=== PATIENT | female | born 1955 | race African-American/Black ===

== ENCOUNTER 2024-04-18 14:35 | Inpatient (IN) | payer OTHER, MEDICAID, MEDICARE ==
[~2024-04-18] VITALS: Ht 162.6 cm; Wt 77.1 kg
[2024-04-18 14:42] VITALS: O2SAT 100
[2024-04-18] MEDS: SODIUM CHLORIDE 0.9% 500 ML IV ONE (15:30)
[2024-04-18] MEDS ORDERED: PIPERACILLIN/TAZO 3.375G/50ML 50 ML IV ONE (15:30)
[2024-04-18] MEDS ORDERED: CEFEPIME 2GM IN DEXT 5% 100ML IV ONE (16:00)
[2024-04-18 16:10] LABS: BASOPHILS % 0.3 % (0.0-2.0); DIFFERENTIAL COMMENT 0; EOSINOPHILS % 0.1 % (0.0-5.0); HEMATOCRIT. 21.2 % (36.0-48.0); LYMPHOCYTES % 8.4 % (20.0-50.0); MEAN CORPUSCULAR HEMOGLOBIN 27.3 pg (28.0-32.0); MEAN CORPUSCULAR HGB CONC 30.9 g/dL (31.0-37.0); MEAN CORPUSCULAR VOLUME 88.1 fL (81.0-99.0); MEAN PLATELET VOLUME 6.5 fl (7.4-10.4); MONOCYTES % 4.2 % (2.0-8.0); PLATELET 435 x1000/uL (130-400); RED CELL DISTRIBUTION WIDTH 20.1 % (11.6-14.6); WHITE BLOOD COUNT 9.8 x1000/uL (4.5-11.0)
[2024-04-18 16:13] LABS: CHLORIDE 102 mEq/L (98-107); HEMOGLOBIN. 6.5 g/dL (12.0-16.0); POTASSIUM 4.5 mEq/L (3.5-5.1); SODIUM 135 mEq/L (136-145)
[2024-04-18 16:14] LABS: CARBON DIOXIDE 16 mEq/L (21-32)
[2024-04-18 16:15] LABS: CALCIUM 8.7 mg/dL (8.7-10.4)
[2024-04-18] MEDS: VANCOMYCIN 1G PREMIX 200 ML IV ONE (16:17)
[2024-04-18 16:18] LABS: PROTHROMBIN TIME 11.5 sec (9.6-11.0)
[2024-04-18 16:19] LABS: CREATININE 2.3 mg/dL (0.6-1.0); GLUCOSE 165 mg/dL (70-105)
[2024-04-18 16:20] LABS: UREA NITROGEN BLOOD 41 mg/dL (9-23)
[2024-04-18 16:29] LABS: TROPONIN I HIGH SENSITIVITY 140 ng/L (3.0-34)
[2024-04-18 16:30] LABS: LACTIC ACID 8.7 mmol/L (0.4-2.0)
[2024-04-18 17:31] LABS: BG BASE EXCESS -13.8 mmol/L (-2.0-2.0); BG CARBOXYHEMOGLOBIN 0.2 % (0.5-1.5); BG FRACTION INSPIRED OXYGEN 100; BG HCO3 ACT 12.5 mmol/L (22.0-26.0); BG METHEMOGLOBIN 0.1 % (0.0-1.5); BG OXYHEMOGLOBIN 95.7 % (94.0-97.0); BG PCO2 30.5 mmHg (35.0-45.0); BG PO2 93.3 mmHg (75.0-100.0); BG SAMPLE SITE RIGHT RADIAL; BG TOTAL HEMOGLOBIN 8.8 g/dL (12.0-18.0); BG VENT MODE MASK - NRB
[2024-04-18] MEDS: CEFEPIME 2GM/100ML 100 ML IV NR (18:26)
[2024-04-18] MEDS: SODIUM CHLORIDE 0.9% 1,000 ML IV ONE ×2 (18:26→23:06)
[2024-04-18 18:47] LABS: TROPONIN I HIGH SENSITIVITY 444 ng/L (3.0-34)
[2024-04-18] MEDS ORDERED: HEPARIN 25,000 UNITS PREMIX 250 ML IV SCH (20:15)
[2024-04-18] MEDS: HEPARIN 5000 UNITS/ML VIAL IV ONE (20:15)
[2024-04-18] MEDS ORDERED: HEPARIN BOLUS PRN aPTT 30-44 IV (22:45)
[2024-04-18] MEDS ORDERED: HEPARIN BOLUS PRN aPTT <30 IV (22:45)
[2024-04-18] MEDS: HEPARIN 60 UNITS/KG BOLUS IV NR (23:15)
[2024-04-18] MEDS: HEPARIN 25,000 UNITS PREMIX 250 ML IV SCH (23:21)
[2024-04-19] VITALS (14 sets, daily range): BP systolic 81–98; BP diastolic 68–80; PULSE 109–117; RESP 20–36; TEMP 97–98.4
[2024-04-19] MEDS: ACETAMINOPHEN 325MG TABLET PO PRN (01:30)
[2024-04-19] MEDS ORDERED: HYDROCODONE/ACETAMINOPHEN 5/325MG TABLET PO PRN (02:30)
[2024-04-19 08:36] LABS: HEMATOCRIT. 24.7 % (36.0-48.0); HEMOGLOBIN. 7.7 g/dL (12.0-16.0); MEAN CORPUSCULAR HEMOGLOBIN 27.3 pg (28.0-32.0); MEAN CORPUSCULAR HGB CONC 31.1 g/dL (31.0-37.0); MEAN CORPUSCULAR VOLUME 87.8 fL (81.0-99.0); MEAN PLATELET VOLUME 7.1 fl (7.4-10.4); PLATELET 428 x1000/uL (130-400); RED BLOOD CELL COUNT 2.81 mill/uL (4.2-5.4); RED CELL DISTRIBUTION WIDTH 19.2 % (11.6-14.6); WHITE BLOOD COUNT 11.1 x1000/uL (4.5-11.0)
[2024-04-19 08:37] LABS: DIFFERENTIAL COMMENT 1
[2024-04-19] MEDS ORDERED: CEFEPIME 1GM/50ML 50 ML IV SCH (14:00)
[2024-04-19 15:34] LABS: PLATELET ESTIMATE SLIGHTLY INCREASED
[2024-04-19] MEDS ORDERED: IPRATROPIUM/ALBUTEROL 0.5-3(2.5)MG/3ML NEB HHN PRN (17:30)
[2024-04-19] MEDS: CEFEPIME 2GM/100ML 100 ML IV SCH (18:43)
[2024-04-19] MEDS: SODIUM CHLORIDE 0.9% 1,000 ML IV SCH (18:46)
[2024-04-19] MEDS: ENOXAPARIN 80MG/0.8ML SYR SUBCUT NR (18:57)
[2024-04-19] MEDS: LACTOBACILLUS GG CAPSULE PO SCH (19:30)
[2024-04-19 19:47] LABS: IRON 35 ug/dL (50-170)
[2024-04-19 19:50] LABS: TOTAL IRON BINDING CAPACITY 157 ug/dl (250-425)
[2024-04-19] MEDS: SODIUM BICARBONATE 8.4% 50MEQ/50ML SYR IV NR (19:57)
[2024-04-19] MEDS: METRONIDAZOLE 500MG TABLET PO SCH (21:23)
[2024-04-20] VITALS (12 sets, daily range): BP systolic 95–112; BP diastolic 69–84; PULSE 114–127; RESP 20–36; TEMP 97.3–98.3
[2024-04-20 05:46] LABS: HEMATOCRIT. 23.6 % (36.0-48.0); HEMOGLOBIN. 7.7 g/dL (12.0-16.0); MEAN CORPUSCULAR HEMOGLOBIN 28.3 pg (28.0-32.0); MEAN CORPUSCULAR HGB CONC 32.7 g/dL (31.0-37.0); MEAN CORPUSCULAR VOLUME 86.5 fL (81.0-99.0); MEAN PLATELET VOLUME 7.1 fl (7.4-10.4); PLATELET 404 x1000/uL (130-400); RED BLOOD CELL COUNT 2.73 mill/uL (4.2-5.4); RED CELL DISTRIBUTION WIDTH 20.4 % (11.6-14.6); WHITE BLOOD COUNT 15.3 x1000/uL (4.5-11.0)
[2024-04-20 05:47] LABS: CALCIUM 8.5 mg/dL (8.7-10.4)
[2024-04-20 05:52] LABS: CREATININE 2.5 mg/dL (0.6-1.0)
[2024-04-20 06:49] LABS: DIFFERENTIAL COMMENT 1
[2024-04-20] MEDS ORDERED: SODIUM BICARBONATE 75 MEQ in SODIUM CHLORIDE 0.45% 1,000 ML IV SCH (13:00)
[2024-04-20] MEDS: SODIUM BICARBONATE 75 MEQ in SODIUM CHLORIDE 0.45% 925 ML IV SCH (16:15)
[2024-04-20 16:37] LABS: ANISOCYTOSIS 2+; PLATELET ESTIMATE INCREASED
[2024-04-20] MEDS: AZTREONAM 2 GM in DEXT 5% WATER 100 ML IV SCH (18:08)
[2024-04-20] MEDS: DIGOXIN 500MCG/2ML AMP IV NR (20:29)
[2024-04-20] MEDS: APIXABAN 5 MG TABLET PO SCH (20:29)
[2024-04-20] MEDS: PREDNISONE 20MG TABLET PO NR (20:30)
[2024-04-21] VITALS (22 sets, daily range): BP systolic 102–137; BP diastolic 70–98; PULSE 105–121; RESP 13–42; TEMP 97.2–98.2
[2024-04-21] MEDS: PREDNISONE 20MG TABLET PO NR ×2 (01:43→08:16)
[2024-04-21 05:13] LABS: DIFFERENTIAL COMMENT 1; HEMATOCRIT. 23.9 % (36.0-48.0); HEMOGLOBIN. 7.8 g/dL (12.0-16.0); MEAN CORPUSCULAR HEMOGLOBIN 28.3 pg (28.0-32.0); MEAN CORPUSCULAR HGB CONC 32.8 g/dL (31.0-37.0); MEAN CORPUSCULAR VOLUME 86.5 fL (81.0-99.0); MEAN PLATELET VOLUME 7.2 fl (7.4-10.4); PLATELET 466 x1000/uL (130-400); RED BLOOD CELL COUNT 2.77 mill/uL (4.2-5.4); RED CELL DISTRIBUTION WIDTH 20.3 % (11.6-14.6); WHITE BLOOD COUNT 18.3 x1000/uL (4.5-11.0)
[2024-04-21 05:16] LABS: CHLORIDE 101 mEq/L (98-107); POTASSIUM 4.8 mEq/L (3.5-5.1)
[2024-04-21 05:17] LABS: CARBON DIOXIDE 19 mEq/L (21-32); SODIUM 134 mEq/L (136-145)
[2024-04-21 05:18] LABS: CALCIUM 8.2 mg/dL (8.7-10.4)
[2024-04-21 05:22] LABS: CREATININE 2.5 mg/dL (0.6-1.0); GLUCOSE 144 mg/dL (70-105)
[2024-04-21 05:23] LABS: UREA NITROGEN BLOOD 46 mg/dL (9-23)
[2024-04-21 05:24] LABS: ALANINE AMINOTRANSFERASE 79 IU/L (10-49); ALBUMIN 3.4 g/dL (3.2-4.8); ASPARTATE AMINOTRANSFERASE 191 IU/L (<34); CREATINE KINASE 243 IU/L (34-145)
[2024-04-21 05:25] LABS: BILIRUBIN DIRECT 0.3 mg/dL (<=3.0); BILIRUBIN TOTAL 0.5 mg/dL (0.1-1.0); PROTEIN TOTAL 6.4 g/dL (6.0-8.3)
[2024-04-21] MEDS ORDERED: LIDOCAINE HCL 1% 10 MG/ML 10ML VIAL ONE (08:18)
[2024-04-21] MEDS ORDERED: IODIXANOL 320MG/ML 100 ML BOTTLE IV ONE (08:18)
[2024-04-21] MEDS: DIPHENHYDRAMINE 50MG/ML VIAL IV NR (08:19)
[2024-04-21] MEDS ORDERED: SODIUM CHLORIDE 0.9% 1,000 ML IV SCH (16:00)
[2024-04-21 19:47] LABS: PLATELET ESTIMATE NORMAL
[2024-04-22] VITALS (12 sets, daily range): BP systolic 86–106; BP diastolic 65–82; PULSE 109–121; RESP 12–25; TEMP 97.1–97.6
[2024-04-22 09:14] LABS: CARBON DIOXIDE 22 mEq/L (21-32); CHLORIDE 98 mEq/L (98-107); POTASSIUM 4.5 mEq/L (3.5-5.1); SODIUM 133 mEq/L (136-145)
[2024-04-22 09:15] LABS: CALCIUM 8.6 mg/dL (8.7-10.4)
[2024-04-22 09:17] LABS: HEMATOCRIT. 25.3 % (36.0-48.0); MEAN CORPUSCULAR HEMOGLOBIN 27.1 pg (28.0-32.0); MEAN CORPUSCULAR HGB CONC 31.4 g/dL (31.0-37.0); MEAN CORPUSCULAR VOLUME 86.1 fL (81.0-99.0); MEAN PLATELET VOLUME 7.2 fl (7.4-10.4); PLATELET 497 x1000/uL (130-400); RED BLOOD CELL COUNT 2.93 mill/uL (4.2-5.4); RED CELL DISTRIBUTION WIDTH 20.5 % (11.6-14.6); UREA NITROGEN BLOOD 56 mg/dL (9-23); WHITE BLOOD COUNT 19.4 x1000/uL (4.5-11.0)
[2024-04-22 09:19] LABS: CREATININE 2.3 mg/dL (0.6-1.0); GLUCOSE 109 mg/dL (70-105)
[2024-04-22 09:21] LABS: ALANINE AMINOTRANSFERASE 52 IU/L (10-49); ALBUMIN 3.5 g/dL (3.2-4.8)
[2024-04-22 09:22] LABS: ASPARTATE AMINOTRANSFERASE 83 IU/L (<34); BILIRUBIN DIRECT 0.2 mg/dL (<=3.0); BILIRUBIN TOTAL 0.4 mg/dL (0.1-1.0); PHOSPHORUS 4.7 mg/dL (2.5-4.9); PROTEIN TOTAL 6.6 g/dL (6.0-8.3)
[2024-04-22 09:40] LABS: DIFFERENTIAL COMMENT 1
[2024-04-22 10:18] LABS: CLARITY URINE TURBID (CLEAR); COLOR URINE DARK YELLOW (YELLOW); GLUCOSE URINE NEGATIVE (NEGATIVE); KETONES URINE TRACE (NEGATIVE); LEUKOCYTE ESTERASE URINE 1+ (NEGATIVE); NITRITE URINE NEGATIVE (NEGATIVE); OCCULT BLOOD URINE 3+ (NEGATIVE); PH URINE 5.5 (4.5-8.0); PROTEIN URINE 3+ (NEGATIVE); SPECIFIC GRAVITY URINE 1.036 (1.005-1.030)
[2024-04-22 10:27] LABS: BACTERIA URINE 4+; RBC URINE 25-50 /hpf (0-2); YEAST URINE NONE SEEN
[2024-04-22 10:28] LABS: SQUAMOUS EPITHELIAL CELL URINE RARE /lpf (RARE/1+)
[2024-04-22 16:02] LABS: PLATELET ESTIMATE INCREASED
[2024-04-22 16:03] LABS: ANISOCYTOSIS 2+
[2024-04-23] VITALS (12 sets, daily range): BP systolic 84–103; BP diastolic 63–75; PULSE 104–115; RESP 12–28; TEMP 96.8–97.4
[2024-04-23 08:16] LABS: BASOPHILS % 0.4 % (0.0-2.0); EOSINOPHILS % 0.1 % (0.0-5.0); HEMOGLOBIN. 7.1 g/dL (12.0-16.0); LYMPHOCYTES % 7.2 % (20.0-50.0); MEAN CORPUSCULAR HEMOGLOBIN 27.3 pg (28.0-32.0); MEAN CORPUSCULAR VOLUME 88.2 fL (81.0-99.0); MEAN PLATELET VOLUME 7.1 fl (7.4-10.4); MONOCYTES % 5.6 % (2.0-8.0); NEUTROPHILS % 86.7 % (40.0-76.0); PLATELET 503 x1000/uL (130-400); RED BLOOD CELL COUNT 2.61 mill/uL (4.2-5.4); RED CELL DISTRIBUTION WIDTH 20.5 % (11.6-14.6); WHITE BLOOD COUNT 12.9 x1000/uL (4.5-11.0)
[2024-04-23 08:32] LABS: POTASSIUM 4.2 mEq/L (3.5-5.1)
[2024-04-23 08:33] LABS: CALCIUM 8.1 mg/dL (8.7-10.4)
[2024-04-23 08:37] LABS: CREATININE 2.2 mg/dL (0.6-1.0)
[2024-04-23] MEDS: VANCOMYCIN 1.25GM PMX (XELLIA) 250 ML IV SCH (20:00)
[2024-04-24] VITALS (12 sets, daily range): BP systolic 82–113; BP diastolic 64–87; PULSE 104–118; RESP 14–34; TEMP 96.8–97.9
[2024-04-24 07:34] LABS: HEMATOCRIT. 23.5 % (36.0-48.0); HEMOGLOBIN. 7.5 g/dL (12.0-16.0); MEAN CORPUSCULAR HEMOGLOBIN 27.7 pg (28.0-32.0); MEAN CORPUSCULAR HGB CONC 32.1 g/dL (31.0-37.0); MEAN CORPUSCULAR VOLUME 86.2 fL (81.0-99.0); MEAN PLATELET VOLUME 7.3 fl (7.4-10.4); PLATELET 516 x1000/uL (130-400); RED BLOOD CELL COUNT 2.72 mill/uL (4.2-5.4); RED CELL DISTRIBUTION WIDTH 20.8 % (11.6-14.6); WHITE BLOOD COUNT 11.8 x1000/uL (4.5-11.0)
[2024-04-24 07:41] LABS: CALCIUM 8.2 mg/dL (8.7-10.4); POTASSIUM 3.8 mEq/L (3.5-5.1)
[2024-04-24 07:47] LABS: CREATININE 2.1 mg/dL (0.6-1.0)
[2024-04-24 08:03] LABS: DIFFERENTIAL COMMENT 1
[2024-04-24] MEDS: VANCOMYCIN 1.5GM/250ML 250 ML IV SCH (11:00)
[2024-04-24 12:56] LABS: ANISOCYTOSIS 2+; PLATELET ESTIMATE INCREASED
[2024-04-25] VITALS (12 sets, daily range): BP systolic 99–117; BP diastolic 71–88; PULSE 105–115; RESP 15–24; TEMP 97.2–98
[2024-04-25 06:04] LABS: HEMATOCRIT. 24.2 % (36.0-48.0); HEMOGLOBIN. 7.6 g/dL (12.0-16.0); MEAN CORPUSCULAR HEMOGLOBIN 27.3 pg (28.0-32.0); MEAN CORPUSCULAR HGB CONC 31.4 g/dL (31.0-37.0); MEAN PLATELET VOLUME 7.2 fl (7.4-10.4); PLATELET 520 x1000/uL (130-400); RED BLOOD CELL COUNT 2.78 mill/uL (4.2-5.4); WHITE BLOOD COUNT 12.3 x1000/uL (4.5-11.0)
[2024-04-25 06:11] LABS: POTASSIUM 3.6 mEq/L (3.5-5.1)
[2024-04-25 06:12] LABS: CALCIUM 8.4 mg/dL (8.7-10.4)
[2024-04-25 06:13] LABS: DIFFERENTIAL COMMENT 1
[2024-04-25 06:17] LABS: CREATININE 1.9 mg/dL (0.6-1.0)
[2024-04-25 17:49] LABS: ANISOCYTOSIS 2+; PLATELET ESTIMATE INCREASED
[2024-04-25] MEDS: DEXT 5% IV SCH (17:53)
[2024-04-25] MEDS: WATER IV SCH (17:53)
[2024-04-25] MEDS: AZTREONAM IV SCH (17:53)
[2024-04-26] VITALS (13 sets, daily range): BP systolic 104–124; BP diastolic 73–88; PULSE 101–120; RESP 14–29; TEMP 97.2–97.8
[2024-04-26 06:29] LABS: CARBON DIOXIDE 23 mEq/L (21-32); CHLORIDE 100 mEq/L (98-107); POTASSIUM 3.2 mEq/L (3.5-5.1); SODIUM 136 mEq/L (136-145)
[2024-04-26 06:30] LABS: CALCIUM 8.2 mg/dL (8.7-10.4); HEMATOCRIT. 24.3 % (36.0-48.0); HEMOGLOBIN. 7.5 g/dL (12.0-16.0); MEAN CORPUSCULAR HEMOGLOBIN 27.1 pg (28.0-32.0); MEAN CORPUSCULAR HGB CONC 30.9 g/dL (31.0-37.0); MEAN CORPUSCULAR VOLUME 87.8 fL (81.0-99.0); MEAN PLATELET VOLUME 7.2 fl (7.4-10.4); PLATELET 543 x1000/uL (130-400); RED BLOOD CELL COUNT 2.77 mill/uL (4.2-5.4); RED CELL DISTRIBUTION WIDTH 21.2 % (11.6-14.6); WHITE BLOOD COUNT 13.5 x1000/uL (4.5-11.0)
[2024-04-26 06:32] LABS: DIFFERENTIAL COMMENT 1
[2024-04-26 06:34] LABS: CREATININE 1.8 mg/dL (0.6-1.0); GLUCOSE 125 mg/dL (70-105)
[2024-04-26 06:35] LABS: UREA NITROGEN BLOOD 53 mg/dL (9-23)
[2024-04-26 06:37] LABS: PHOSPHORUS 3.2 mg/dL (2.5-4.9)
[2024-04-26] MEDS: POTASSIUM CHLORIDE 20MEQ TABLET SR PO NR (08:45)
[2024-04-26] MEDS: MAGNESIUM 2 G PREMIX 50 ML IV NR (10:01)
[2024-04-26] MEDS: METRONIDAZOLE 500MG TABLET PO SCH (14:56)
[2024-04-26 16:41] LABS: PLATELET ESTIMATE SLIGHTLY INCREASED
[2024-04-26] MEDS: WATER IV SCH (18:23)
[2024-04-26] MEDS: AZTREONAM IV SCH (18:23)
[2024-04-26] MEDS: DEXT 5% IV SCH (18:23)
[2024-04-27] VITALS (12 sets, daily range): BP systolic 90–109; BP diastolic 62–83; PULSE 106–118; RESP 19–28; TEMP 96.9–97.8
[2024-04-27 06:24] LABS: HEMATOCRIT. 23.5 % (36.0-48.0); HEMOGLOBIN. 7.4 g/dL (12.0-16.0); MEAN CORPUSCULAR HEMOGLOBIN 27.3 pg (28.0-32.0); MEAN CORPUSCULAR HGB CONC 31.3 g/dL (31.0-37.0); MEAN CORPUSCULAR VOLUME 87.5 fL (81.0-99.0); MEAN PLATELET VOLUME 7.2 fl (7.4-10.4); PLATELET 551 x1000/uL (130-400); RED BLOOD CELL COUNT 2.69 mill/uL (4.2-5.4); RED CELL DISTRIBUTION WIDTH 21.7 % (11.6-14.6); WHITE BLOOD COUNT 13.2 x1000/uL (4.5-11.0)
[2024-04-27 06:38] LABS: DIFFERENTIAL COMMENT 1
[2024-04-27 06:43] LABS: CHLORIDE 101 mEq/L (98-107)
[2024-04-27 06:44] LABS: CARBON DIOXIDE 24 mEq/L (21-32); SODIUM 137 mEq/L (136-145)
[2024-04-27 06:45] LABS: CALCIUM 8.6 mg/dL (8.7-10.4)
[2024-04-27 06:49] LABS: CREATININE 1.8 mg/dL (0.6-1.0); GLUCOSE 95 mg/dL (70-105)
[2024-04-27 06:50] LABS: UREA NITROGEN BLOOD 54 mg/dL (9-23)
[2024-04-27 06:52] LABS: PHOSPHORUS 2.8 mg/dL (2.5-4.9)
[2024-04-27 11:49] LABS: ANISOCYTOSIS 3+; PLATELET ESTIMATE INCREASED
== END 2024-04-27 20:30 | disposition left against medical advice (07) | DRG 871 ==
LOC: ER 14:35 → 5EST 19:37 → EDBEDREQ 19:46
PROVIDERS: ADMIT Internal Medicine; ATTEND Internal Medicine
PROC: 30233N1 Transfusion of Nonautologous Red Blood Cells into Peripheral Vein, Percutaneous Approach (ICD-10-PCS; principal; 2024-04-18)
PROC: 5A0935A Assistance with Respiratory Ventilation, Less than 24 Consecutive Hours, High Flow/Velocity Cannula (ICD-10-PCS; 2024-04-18)
PROC: 06H03DZ Insertion of Intraluminal Device into Inferior Vena Cava, Percutaneous Approach (ICD-10-PCS; 2024-04-21)
DX: A41.9 Sepsis, unspecified organism (principal); I21.A1 Myocardial infarction type 2; J96.01 Acute respiratory failure with hypoxia; N17.0 Acute kidney failure with tubular necrosis; R65.21 Severe sepsis with septic shock; N13.6 Pyonephrosis; I82.413 Acute embolism and thrombosis of femoral vein, bilateral; E87.20 Acidosis, unspecified; N13.8 Other obstructive and reflux uropathy; C56.9 Malignant neoplasm of unspecified ovary; G90.8 Other disorders of autonomic nervous system; D64.9 Anemia, unspecified; E87.70 Fluid overload, unspecified; Z53.29 Procedure and treatment not carried out because of patient's decision for other reasons; Z66 Do not resuscitate; Z51.5 Encounter for palliative care; Z82.49 Family history of ischemic heart disease and other diseases of the circulatory system; Z86.711 Personal history of pulmonary embolism; Z88.0 Allergy status to penicillin; Z95.828 Presence of other vascular implants and grafts
CPT/HCPCS: 36415; 36600; 37191; 71045; 71250; 74176; 78580; 80048; 80076; 81003; 82375; 82550; 82728; 82805; 83540; 83550; 83605; 83735; 83880; 84100; 84145; 84484; 85025; 85379; 86850; 86900; 86920; 93005; 93306; 93970; 97110; 97162; 97166; 97530; 99291; A6261; C1769; C1880; J0692; J1160; J1200; J1644; J1650; J3370; J3475; J3490; J7030; J7040; J7060; J7512; P9016; Q9967